=== PATIENT | male | born 1990 | race Caucasian/White ===

== ENCOUNTER 2023-12-28 16:02 | Emergency (ER) | payer OTHER, BC ==
[~2023-12-28] VITALS: Ht 195.6 cm; Wt 97.5 kg
[~2023-12-28 16:02] MED LIST: SUCR1ORA2 PO
[2023-12-28 16:08] VITALS: BP 133/85; PULSE 87; RESP 16; TEMP 98.6; O2SAT 100
== END 2023-12-28 17:09 | disposition home or self-care (01) ==
LOC: ER 16:03
DX: S20.213A Contusion of bilateral front wall of thorax, initial encounter (principal); Z79.899 Other long term (current) drug therapy; V49.9XXA Car occupant (driver) (passenger) injured in unspecified traffic accident, initial encounter; Y93.89 Activity, other specified; Y92.89 Other specified places as the place of occurrence of the external cause; Y99.8 Other external cause status
CPT/HCPCS: 71046; 99283

== ENCOUNTER 2025-01-19 06:42 | Emergency (ER) | payer BC ==
[~2025-01-19] VITALS: Ht 195.6 cm; Wt 100.3 kg
[2025-01-19] MEDS ORDERED: HYDR-3965 PO (07:33)
[2025-01-19] MEDS: ketorolac trometh 15mg/ml vial 15 MG/ML ML IM ONE (07:45)
[2025-01-19 08:16] VITALS: BP 130/76; PULSE 74; RESP 16; TEMP 98.1; O2SAT 98
== END 2025-01-19 08:20 | disposition home or self-care (01) ==
LOC: ER 06:43
DX: S83.8X1A Sprain of other specified parts of right knee, initial encounter (principal); Z79.899 Other long term (current) drug therapy; X50.1XXA Overexertion from prolonged static or awkward postures, initial encounter; Y93.89 Activity, other specified; Y92.89 Other specified places as the place of occurrence of the external cause; Y99.8 Other external cause status
CPT/HCPCS: 29505; 73564; 96372; 99283; J1885